=== PATIENT | female | born 1950 | race Hispanic/Latino ===

== ENCOUNTER 2019-05-12 16:15 | Emergency (ER) | payer MEDICARE ==
[2019-05-12] MEDS ORDERED: ONDANSETRON 4 MG/2 ML INJ IV ONE (18:42)
[2019-05-12] MEDS ORDERED: HYDROmorphone 1 MG/1 ML INJ IV ONE (18:42)
[2019-05-12] MEDS ORDERED: SODIUM CHLORIDE 0.9% 500 ML 500 ML IV ONE (18:42)
--- NOTE | 2019-05-12 18:44 | Emergency Department Report ---
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 The patient is not known to this provider previously. Her past history includes arthritis, right sided knee replacement, chronic pain syndrome, coccydynia, question right-sided ovarian mass, chronic, fibromyalgia, depression. She reports that she does not currently have a private pain specialist as her pain physician recently got arrested She presents to the ER with a complaint of nontraumatic acute on chronic left knee pain, weakness, diffuse abdominal pain, back pain, dysuria, coccygeal pain. Pain present chronically, but worsened recently. Pain is sharp, increases with palpation and decreases with rest. There is no headache or neck pain. There is no chest pain. There is no vomiting. There is positive constipation. She endorses dysuria. She endorses brown stool with red blood, secondary to constipation or hemorrhoids. She endorses dysuria. She endorses chronic arthritis. She endorses chronic coccydynia. -: Gradual Severity scale (0 -10): 10 Quality: other Consistency: other Improves with: other Worsens with: other - Related Data Previous Rx's Medication Instructions Recorded Last Taken Type Acetaminophen [Non-Aspirin Extra 500 mg PO Q6HR PRN #30 tablet 05/12/19 Unknown Rx Strength] Ibuprofen [Motrin] 600 mg PO Q8H PRN #30 tablet 05/12/19 Unknown Rx Ondansetron [Zofran Odt] 4 mg PO Q8HR PRN #20 tab.rapdis 05/12/19 Unknown Rx Allergies Allergy/AdvReac Type Severity Reaction Status Date / Time No Known Allergies Allergy Verified 09/20/15 15:26 ED Review of Systems ROS: Stated complaint: BODY PAIN Other details as noted in HPI Constitutional: malaise, weakness Eyes: denies: eye discharge ENT: denies: congestion Respiratory: denies: wheezing Cardiovascular: denies: syncope Gastrointestinal: abdominal pain, constipation Genitourinary: dysuria Musculoskeletal: back pain, arthralgia, myalgia Skin: denies: lesions Neurological: weakness Psychiatric: anxiety ED Past Medical Hx - Past Medical History Previous Medical History?: Yes Hx Hypertension: Yes Hx Arthritis: Yes Hx Psychiatric Treatment: Yes (depression) Additional medical history: mass in lower back, chronic pain - Surgical History Past Surgical History?: No Additional Surgical History: R arm - Social History Smoking Status: Never Smoker Substance Use Type: None - Medications Home Medications: Home Medications Medication Instructions Recorded Confirmed Last Taken Type Acetaminophen [Non-Aspirin Extra 500 mg PO Q6HR PRN #30 tablet 05/12/19 Unknown Rx Strength] Ibuprofen [Motrin] 600 mg PO Q8H PRN #30 tablet 05/12/19 Unknown Rx Ondansetron [Zofran Odt] 4 mg PO Q8HR PRN #20 tab.rapdis 05/12/19 Unknown Rx ED Physical Exam - General Limitations: No Limitations General appearance: alert, anxious, in distress, obese - Head Head exam: Present: atraumatic, normocephalic - Eye Eye exam: Present: normal appearance, EOMI, other (there is a chronic right- sided strabismus.). Absent: nystagmus - ENT ENT exam: Present: normal exam, mucous membranes dry, normal external ear exam - Neck Neck exam: Present: normal inspection, full ROM. Absent: tenderness, meningismu s - Respiratory Respiratory exam: Present: normal lung sounds bilaterally. Absent: respiratory distress - Cardiovascular Cardiovascular Exam: Present: regular rate, normal rhythm, normal heart sounds. Absent: bradycardia, tachycardia, irregular rhythm, systolic murmur, diastolic murmur, rubs, gallop - GI/Abdominal GI/Abdominal exam: Present: soft, tenderness. Absent: guarding, rebound, rigid, pulsatile mass - Rectal Rectal exam: Present: normal inspection, normal rectal tone, other (chaperoned by DILLON Mitchell). Absent: heme (-) stool, heme (+) stool, bloody stool, fecal impaction, tenderness - Extremities Exam Extremities exam: Present: normal inspection, full ROM, tenderness (there is reproducible left-sided knee tenderness, laterally and medially.), other (2+ pulses noted in the bilateral upper and lower extremities. There is no long bony tenderness. The muscular compartments are soft. The pelvis is stable.) - Back Exam Back exam: Present: normal inspection, full ROM, paraspinal tenderness. Absent: tenderness, vertebral tenderness - Neurological Exam Neurological exam: Present: alert, oriented X3, other (there is no facial droop. The tongue is midline. The extraocular movements are intact bilaterally. ) - Psychiatric Psychiatric exam: Present: anxious - Skin Skin exam: Present: warm, dry, intact, normal color, other (there is no coccygeal redness, pus or streaking. The gluteal exam is within normal limits. Chaperoned by DILLON Dunham). Absent: rash ED Course Vital Signs 05/12/19 05/12/19 05/12/19 16:39 16:42 16:46 Temperature 98.2 F Pulse Rate 77 76 78 Respiratory 13 17 21 Rate Blood Pressure 144/74 Blood Pressure 137/67 [Right] O2 Sat by Pulse 97 95 92 Oximetry 05/12/19 05/12/19 05/12/19 17:00 17:16 17:30 Temperature Pulse Rate 74 Respiratory 25 H Rate Blood Pressure 145/74 145/74 145/74 Blood Pressure [Right] O2 Sat by Pulse 93 91 93 Oximetry 05/12/19 05/12/19 05/12/19 17:46 18:00 18:16 Temperature Pulse Rate Respiratory Rate Blood Pressure 145/74 145/74 145/74 Blood Pressure [Right] O2 Sat by Pulse 96 95 95 Oximetry 05/12/19 05/12/19 05/12/19 18:30 18:46 19:00 Temperature Pulse Rate 77 79 Respiratory 23 12 Rate Blood Pressure 145/74 139/60 139/60 Blood Pressure [Right] O2 Sat by Pulse 96 95 97 Oximetry 05/12/19 05/12/19 05/12/19 19:16 19:30 19:46 Temperature Pulse Rate 80 80 82 Respiratory 10 L 11 L 11 L Rate Blood Pressure 137/72 137/72 149/59 Blood Pressure [Right] O2 Sat by Pulse 96 95 97 Oximetry 05/12/19 05/12/19 20:00 20:16 Temperature Pulse Rate 78 81 Respiratory 11 L 20 Rate Blood Pressure 135/70 128/74 Blood Pressure [Right] O2 Sat by Pulse 92 86 Oximetry - Reevaluation(s) Reevaluation #1: 05/12/19 19:59 Differential diagnosis, including but not limited to: Acute on chronic arthritis pain, acute on chronic fibromyalgia, urinary tract infection, colitis, diverticulitis, urinary tract infection, obstruction Arthritis Assessment and plan: 69-year-old female with multiple chronic pain syndromes, arthritis, fibromyalgia, with multiple complaints today, including left-sided knee pain, coccydynia, back pain, and abdominal pain. She is afebrile with reassuring vital signs. We will check basic laboratory studies, CT scan of the abdomen and pelvis, urinalysis, EKG, and x-ray of the left lower extremity/knee. Patient reports she believes she can tolerate hydromorphone for pain. Reevaluation #2: 05/12/19 22:37 Lactic acid unremarkable. Urinalysis unremarkable. CT scan abdomen and pelvis shows no acute surgical process. Patient resting comfortably, and in no acute distress. Incidental findings noted. Patient will be referred to local primary care and pain specialist. She does not meet criteria for hospitalization at this time. ED Medical Decision Making - Lab Data Result diagrams: 05/12/19 19:03 05/12/19 19:03 Vital Signs 05/12/19 05/12/19 05/12/19 16:39 16:42 16:46 Temperature 98.2 F Pulse Rate 77 76 78 Respiratory 13 17 21 Rate Blood Pressure 144/74 Blood Pressure 137/67 [Right] O2 Sat by Pulse 97 95 92 Oximetry 05/12/19 05/12/19 17:00 17:16 Temperature Pulse Rate 74 Respiratory 25 H Rate Blood Pressure 145/74 145/74 Blood Pressure [Right] O2 Sat by Pulse 93 91 Oximetry Lab Results 05/12/19 05/12/19 05/12/19 Range/Units 19:03 19:03 19:03 WBC 9.0 (4.5-11.0) K/mm3 RBC 5.12 H (3.65-5.03) M/mm3 Hgb 14.9 H (10.1-14.3) gm/dl Hct 44.3 H (30.3-42.9) % MCV 87 (79-97) fl MCH 29 (28-32) pg MCHC 34 (30-34) % RDW 16.4 H (13.2-15.2) % Plt Count 143 (140-440) K/mm3 Sodium 139 (137-145) mmol/L Potassium 3.1 L (3.6-5.0) mmol/L Chloride 100.2 (98-107) mmol/L Carbon Dioxide 24 (22-30) mmol/L Anion Gap 18 mmol/L BUN 19 H (7-17) mg/dL Creatinine 1.0 (0.7-1.2) mg/dL Estimated GFR 55 ml/min BUN/Creatinine Ratio 19 % Glucose 98 (65-100) mg/dL Lactic Acid 1.20 (0.7-2.0) mmol/L Calcium 9.4 (8.4-10.2) mg/dL Magnesium 2.10 (1.7-2.3) mg/dL Total Bilirubin 0.80 (0.1-1.2) mg/dL AST 37 (5-40) units/L ALT 27 (7-56) units/L Alkaline Phosphatase 79 (35-129) units/L Total Protein 7.1 (6.3-8.2) g/dL Albumin 4.0 (3.9-5) g/dL Albumin/Globulin Ratio 1.3 % Lipase 27 (13-60) units/L Urine Color (Yellow) Urine Turbidity (Clear) Urine pH (5.0-7.0) Ur Specific [place] (1.003-1.030) Urine Protein (Negative) mg/dL Urine Glucose (UA) (Negative) mg/dL Urine Ketones (Negative) mg/dL Urine Blood (Negative) Urine Nitrite (Negative) Urine Bilirubin (Negative) Urine Urobilinogen (<2.0) mg/dL Ur Leukocyte Esterase (Negative) Urine WBC (Auto) (0.0-6.0) /HPF Urine RBC (Auto) (0.0-6.0) /HPF U Epithel Cells (Auto) (0-13.0) /HPF 05/12/19 Range/Units 19:38 WBC (4.5-11.0) K/mm3 RBC (3.65-5.03) M/mm3 Hgb (10.1-14.3) gm/dl Hct (30.3-42.9) % MCV (79-97) fl MCH (28-32) pg MCHC (30-34) % RDW (13.2-15.2) % Plt Count (140-440) K/mm3 Sodium (137-145) mmol/L Potassium (3.6-5.0) mmol/L Chloride (98-107) mmol/L Carbon Dioxide (22-30) mmol/L Anion Gap mmol/L BUN (7-17) mg/dL Creatinine (0.7-1.2) mg/dL Estimated GFR ml/min BUN/Creatinine Ratio % Glucose (65-100) mg/dL Lactic Acid (0.7-2.0) mmol/L Calcium (8.4-10.2) mg/dL Magnesium (1.7-2.3) mg/dL Total Bilirubin (0.1-1.2) mg/dL AST (5-40) units/L ALT (7-56) units/L Alkaline Phosphatase (35-129) units/L Total Protein (6.3-8.2) g/dL Albumin (3.9-5) g/dL Albumin/Globulin Ratio % Lipase (13-60) units/L Urine Color Yellow (Yellow) Urine Turbidity Clear (Clear) Urine pH 7.0 (5.0-7.0) Ur Specific [place] 1.004 (1.003-1.030) Urine Protein <15 mg/dl (Negative) mg/dL Urine Glucose (UA) Neg (Negative) mg/dL Urine Ketones Neg (Negative) mg/dL Urine Blood Neg (Negative) Urine Nitrite Neg (Negative) Urine Bilirubin Neg (Negative) Urine Urobilinogen < 2.0 (<2.0) mg/dL Ur Leukocyte Esterase Neg (Negative) Urine WBC (Auto) 1.0 (0.0-6.0) /HPF Urine RBC (Auto) 2.0 (0.0-6.0) /HPF U Epithel Cells (Auto) < 1.0 (0-13.0) /HPF - EKG Data -: EKG Interpreted by Sc EKG shows normal: sinus rhythm Rate: normal - EKG Data When compared to previous EKG there are: previous EKG unavailable 05/12/19 21:18 There is no prior EKG available for comparison. The EKG shows a sinus rhythm, left axis deviation, left anterior fascicular block, motion artifact, the EKG is abnormal, the EKG is not consistent with ST elevation myocardial infarction. - Radiology Data Radiology results: pending, report reviewed, image reviewed X-ray the left knee is negative for acute disease Print Report Referring Physician: NINA OGLESBY Patient Name: DL KINNEY Date of : 1950 Sex: Female Report Date: 2019-05-12 Report Status: Finalized Findings [facility] [address] [place] [address] Cat Scan Report Signed Patient: DL KINNEY V MR#: [id number] : 1950 Acct:[id number] Age/Sex: 69 / F ADM Date: 05/12/19 Loc: ED Attending Dr: Ordering Physician: NINA OGLESBY MD Date of Service: 05/12/19 Procedure(s): CT abdomen pelvis w con Accession Number(s): [id number] cc: NINA OGLESBY MD CT abdomen pelvis w con INDICATION / CLINICAL INFORMATION: abd pain back pain dysuria. TECHNIQUE: All CT scans at this location are performed using CT dose reduction for ALARA by means of automated exposure control. COMPARISON: None available. FINDINGS: Limited lower thoracic images are negative. ABDOMEN: The gallbladder is surgically absent. Slight prominence of the extrahepatic bile duct. Fatty infiltration of the liver. The spleen is a at the upper limit of normal in size. No pancreatic abnormality. No hydronephrosis. A 3 cm left renal cyst is identified. A well-circumscribed slightly heterogeneous left adrenal mass measures 4 cm. Attenuation values on postcontrast imaging are indeterminate. No retroperitoneal adenopathy. No small bowel distention. Multiple fat-containing ventral hernias are identified. Atherosclerotic changes of the aortoiliac vessels without aneurysm. Pelvis: There are no dependent fluid collections or inflammatory changes seen in the pelvis. No significant skeletal abnormalities. IMPRESSION: 1. No acute findings. 2. Fatty liver. 3. Left adrenal mass, indeterminate in attenuation value postcontrast. Noncontrast CT imaging or MRI recommended for further evaluation. 4. Multiple fat-containing ventral hernias. Signer Name: Thanh Castro MD Signed: 05/12/2019 10:03 PM Workstation Name: [id number] Transcribed By: JACQUELINE Dictated By: Thanh Castro MD Electronically Authenticated By: Thanh Castro MD Signed Date/Time: 05/12/19 [id number] Print Report Referring Physician: NINA OGLESBY Patient Name: DL KINNEY Date of : 1950 Sex: Female Report Date: 2019-05-12 Report Status: Finalized Findings [facility] [address] [place] [address] XRay Report Signed Patient: DL KINNEY V MR#: [id number] : 1950 Acct:[id number] Age/Sex: 69 / F ADM Date: 05/12/19 Loc: ED Attending Dr: Ordering Physician: NINA OGLESBY MD Date of Service: 05/12/19 Procedure(s): XR knee 3V LT Accession Number(s): [id number] cc: NINA OGLESBY MD Fluoro Time In Minutes: Left knee, 3 views INDICATION: Knee pain x2 months FINDINGS: There is slight narrowing of the medial and lateral compartments with relatively extensive spurring no fracture or erosions. No acute abnormality Seen laterally. There is patellofemoral narrowing and spurring as well without joint effusion. Signer Name: Esdras Bradshaw MD Signed: 05/12/2019 8:01 PM Workstation Name: [id number] Transcribed By: YUMIKO Dictated By: Esdras Bradshaw MD Electronically Authenticated By: Esdras Bradshaw MD Signed Date/Time: 05/12/192000 DD/ 58 Critical care attestation.: If time is entered above; I have spent that time in minutes in the direct care of this critically ill patient, excluding procedure time. ED Disposition Clinical Impression: Left knee pain, Abdominal pain, Back pain Disposition: - TO HOME OR SELFCARE Is pt being admited?: No Does the pt Need Aspirin: No Condition: Stable Additional Instructions: Do not take metformin medication for the next 2 days, if patient takes his me dication. Advance diet as tolerated, take the pain medications as needed, and nausea medication as needed and/or directed. Urine cultures were sent today, and results will be available in the next 3-5 days. Have your primary care doctor contact the medical records department to obtain culture results. Rest, avoid heavy lifting, and avoid strenuous physical activity. Recommend patient follow up with her primary care doctor or a pain specialist within the next 7-[address] scan abdomen and pelvis showed incidental findings from the left adrenal gland, which should be followed up by a primary care doctor within 4-6 weeks. Not having a primary care doctor follow this up may result in an undiagnosed cancer, tumor, malignancy. Participate in physical activities as tolerated, rest, and avoid heavy lifting. Weightbearing as tolerated. Return to the emergency room right away with new, worsening or different symptoms, or symptoms not present on the initial emergency room evaluation. Please have a primary care doctor contact the medical records department to obtain CT scan results, and laboratory studies, to follow-up on the incidental nonemergent findings Referrals: DEMETRIA DALE MD [Staff Physician] - as needed (pain doctor) [facility] [Provider Group] - as needed [facility] [Provider Group] - as needed
[2019-05-12 19:19] LABS: Hematocrit 44.3 % (30.3-42.9); Hemoglobin 14.9 gm/dl (10.1-14.3); Mean Corpuscular HGB Conc 34 % (30-34); Mean Corpuscular Volume 87 fl (79-97); Platelet Count 143 K/mm3 (140-440); Red Blood Count 5.12 M/mm3 (3.65-5.03); Red Cell Distribution Width 16.4 % (13.2-15.2)
[2019-05-12 19:47] LABS: Calcium 9.4 mg/dL (8.4-10.2)
[2019-05-12] MEDS ORDERED: POTASSIUM CHLORIDE ER 20 MEQ TAB PO ONE ×2 (19:54→21:59)
[2019-05-12 19:56] LABS: Bilirubin,Urine NEG (Negative); Blood,Urine NEG (Negative); Color,Urine Yellow (Yellow); Protein,Urine <15 mg/dL mg/dL (Negative); Urobilinogen,Urine < 2.0 mg/dL (<2.0)
--- NOTE | 2019-05-12 20:06 | XRay Report ---
Left knee, 3 views INDICATION: Knee pain x2 months FINDINGS: There is slight narrowing of the medial and lateral compartments with relatively extensive spurring no fracture or erosions. No acute abnormality Seen laterally. There is patellofemoral narrow ing and spurring as well without joint effusion. Signer Name: Esdras Bradshaw MD Signed: 05/12/2019 8:01 PM Workstation Name: [id number]
[2019-05-12] MEDS: POTASSIUM CHLORIDE 10 MEQ 10 MEQ/100 ML BAG IV SCH ×2 (22:00→23:32)
--- NOTE | 2019-05-12 22:08 | Cat Scan Report ---
CT abdomen pelvis w con INDICATION / CLINICAL INFORMATION: abd pain back pain dysuria. TECHNIQUE: All CT scans at this location are performed using CT dose reduction for ALARA by means of automated e xposure control. COMPARISON: None available. FINDINGS: Limited lower thoracic images are negative. ABDOMEN: The gallbladder is surgically absent. Slight prominence of the extrahepatic bile duct. Fatty infiltration of the liver. The spleen is a at the upper limit of normal in size. No pancreatic abnormality. No hydronephrosis. A 3 cm left renal cyst is identified. A well-circumscribed slightly heterogeneous left adrenal mass measures 4 cm. Attenuation values on po stcontrast imaging are indeterminate. No retroperitoneal adenopathy. No small bowel distention. Multiple fat-containing ventral hernias are identified. Atherosclerotic changes of the aortoiliac vessels without aneurysm. Pelvis: There are no dependent fluid collections or inflammatory changes seen in the pelvis. No significant skeletal abnormalities. IMPRESSION: 1. No acute findings. 2. Fatty liver. 3. Left adrenal mass, indeterminate in attenuation value postcontrast. Noncontrast CT imaging or MRI recommended for further evaluation. 4. Multiple fat-containing ventral hernias. Signer Name: Thanh Castro MD Signed: 05/12/2019 10:03 PM Workstation Name: [id number]
[2019-05-13 01:04] VITALS: BP 137/67
== END 2019-05-12 23:21 | disposition home or self-care (01) ==
LOC: ED 16:15
DX: M25.562 Pain in left knee (principal); R10.9 Unspecified abdominal pain; M54.5 Low back pain; I10 Essential (primary) hypertension; M19.90 Unspecified osteoarthritis, unspecified site; F32.9 Major depressive disorder, single episode, unspecified; Z98.890 Other specified postprocedural states; Z79.1 Long term (current) use of non-steroidal anti-inflammatories (NSAID); Z79.899 Other long term (current) drug therapy
CPT/HCPCS: 36415; 73562; 74177; 80053; 81001; 82140; 83690; 83735; 85027; 87086; 93005; 93010; 96374; 96375; 99285; J1170; J2405; J7040; Q9967; 96361; J3480

== ENCOUNTER 2020-05-24 13:07 | Outpatient (CLI) | payer MEDICARE ==
--- NOTE | 2020-05-24 17:13 | Ultrasound Report ---
ULTRASOUND RENAL INDICATION: CHRONIC KIDNEY DISEASE. COMPARISON: CT abdomen and pelvis with contrast from 05/12/2019. FINDINGS: RIGHT KIDNEY: Size: 9.9 x 5.0 cm. Echogenicity: Increased. Cortical thickness: Mild thinning, 1.3 cm. Hydronephrosis: None. Cyst or mass: None. Stones: None. LEFT KIDNEY: Size: 10.9 x 5.2 cm. Echogenicity: Increased. Cortical thickness: Mild thinning, 1.3 cm. Hydronephrosis: None. Cyst or mass: A simple upper/mid pole cyst measures 2.3 x 2.2 x 1.6 cm. Stones: None. Urinary Bladder: Incompletely distended without a distinct abnormality. Free Fluid: None. Additional Findings: The previously described indeterminate left adrenal nodule measures 2.8 x 2.7 cm , previously 3.3 x 2.5 cm. IMPRESSION 1. No acute sonographic abnormality of the kidneys. 2. Increased bilateral renal cortical echotexture is consistent with chronic kidney disease. 3. Left adrenal nodule as above is smaller compared to the prior CT. A benign etiology is favored. A CT abdomen with and without contrast (adrenal protocol) would be helpful for further evaluation. 4. Additional findings as above. Signer Name: Tomas Miller MD Signed: 05/24/2020 5:09 PM Workstation Name: [id number]
== END 2020-05-24 13:08 | disposition home or self-care (01) ==
LOC: US 13:07
PROVIDERS: ATTEND Internal Medicine Nephrology
DX: N28.1 Cyst of kidney, acquired (principal); R94.4 Abnormal results of kidney function studies; N18.30 Chronic kidney disease, stage 3 unspecified
CPT/HCPCS: 76770

== ENCOUNTER 2021-10-25 14:36 | Outpatient (CLI) | payer MEDICARE ==
--- NOTE | 2021-10-25 16:31 | XRay Report ---
Bilateral knees-6 total views INDICATION: M25.562 BILATERAL KNEE PAIN. COMPARISON: Left knee from 05/12/2019 IMPRESSION: Right total knee arthroplasty in satisfactory position with no complication. Moderate to severe tricompartmental DJD in the left knee. Normal alignment. Soft tissues are unremarkable. Signer Name: Donis Garcia MD Signed: 10/25/2021 4:27 PM Workstation Name: [id number]
== END 2021-10-25 14:37 | disposition home or self-care (01) ==
LOC: XRAY 14:36
PROVIDERS: ATTEND Anesthesiology
DX: M17.12 Unilateral primary osteoarthritis, left knee (principal); Z96.651 Presence of right artificial knee joint